=== PATIENT | female | born 1985 | race African-American/Black ===

== ENCOUNTER 2021-01-01 16:09 | Emergency (ER) | payer MEDICAID ==
[~2021-01-01] VITALS: Ht 175.3 cm; Wt 66.0 kg
[2021-01-01 17:08] LABS: BASOPHILS % 1.3 % (0.0-2.0); EOSINOPHILS % 5.5 % (0.0-5.0); HEMATOCRIT. 35.9 % (36.0-48.0); LYMPHOCYTES % 35.4 % (20.0-50.0); MEAN CORPUSCULAR HEMOGLOBIN 23.3 pg (28.0-32.0); MEAN CORPUSCULAR VOLUME 69.6 fL (81.0-99.0); MEAN PLATELET VOLUME 7.7 fl (7.4-10.4); MONOCYTES % 5.8 % (2.0-8.0); PLATELET 264 x1000/uL (130-400); RED BLOOD CELL COUNT 5.16 mill/uL (4.2-5.4); RED CELL DISTRIBUTION WIDTH 15.8 % (11.6-14.6)
[2021-01-01 17:13] LABS: CHLORIDE 104 mEq/L (98-107)
[2021-01-01 17:37] LABS: B-HCG QUANTITATIVE 3539 mIU/mL (<3)
[2021-01-01 17:49] LABS: PLATELET ESTIMATE NORMAL
[2021-01-01 19:23] VITALS: BP 123/78
== END 2021-01-01 19:35 | disposition home or self-care (01) ==
LOC: ER 16:09
DX: O46.91 Antepartum hemorrhage, unspecified, first trimester (principal); O26.891 Other specified pregnancy related conditions, first trimester; Z98.890 Other specified postprocedural states; Z3A.11 11 weeks gestation of pregnancy
CPT/HCPCS: 36415; 76801; 76817; 80053; 84702; 85025; 86850; 86900; 86901; 99284; Z7610

== ENCOUNTER 2021-01-04 17:23 | Emergency (ER) | payer MEDICAID ==
[~2021-01-04] VITALS: Ht 175.3 cm; Wt 66.0 kg
[2021-01-04 17:45] VITALS: BP 120/66
[2021-01-04 19:59] LABS: CLARITY URINE TURBID (CLEAR); COLOR URINE YELLOW (YELLOW); KETONES URINE NEGATIVE (NEGATIVE); LEUKOCYTE ESTERASE URINE NEGATIVE (NEGATIVE); NITRITE URINE NEGATIVE (NEGATIVE); OCCULT BLOOD URINE NEGATIVE (NEGATIVE); PH URINE 7.5 (4.5-8.0); PROTEIN URINE NEGATIVE (NEGATIVE); SPECIFIC GRAVITY URINE 1.017 (1.005-1.030); UROBILINOGEN URINE 0.2 E.U./dL (0.2-1.0)
== END 2021-01-04 20:41 | disposition home or self-care (01) ==
LOC: ER 17:23
DX: O20.0 Threatened abortion (principal); Z3A.11 11 weeks gestation of pregnancy
CPT/HCPCS: 36415; 81003; 84702; 99283